=== PATIENT | male | born 1940 | race Caucasian/White ===

== ENCOUNTER 2016-12-24 15:51 | Emergency (ER) | payer MEDICARE, OTHER ==
[2016-12-24 16:00] VITALS: BP 135/67
--- NOTE | 2016-12-24 16:29 | UC ---
Hip/Pelvis Pain - HPI Summary HPI Summary: 76 YEAR OLD MALE WITH A HISTORY OF POLIO PRESENTS WITH LEFT HIP PAIN WITH RECENT FALL. - History Of Current Complaint Chief Complaint: UCLowerExtremity Stated Complaint: LEFT HIP PAIN Time Seen by Provider: 12/24/16 15:57 Hx Obtained From: Patient Onset/Duration: Sudden Onset Severity Initially: Moderate Severity Currently: Moderate Pain Scale Used: 0-10 Numeric - 5 Character Of Pain: Aching Aggravating Factor(s): Weight Bearing Alleviating Factor(s): Nothing - Allergies/Home Medications Allergies/Adverse Reactions: Allergies Allergy/AdvReac Type Severity Reaction Status Date / Time Simvastatin [From Zocor] Allergy See Comment Verified 12/24/16 16:00 Home Medications: Home Medications Clopidogrel TAB* [Plavix TAB*] 75 mg PO DAILY 12/24/16 [History Confirmed ] PMH/Surg Hx/FS Hx/Imm Hx Previously Healthy: Yes - Surgical History Surgical History: Yes Surgery Procedure, Year, and Place: PELVIC SX. APPY. STENT PLACEMENT--NECK s/ p CVA. Voicebox procedure s/p Polio - Social History Alcohol Use: None Substance Use Type: None Smoking Status (MU): Never Smoked Tobacco Review of Systems Constitutional: Negative Skin: Negative Eyes: Negative ENT: Negative Respiratory: Negative Cardiovascular: Negative Gastrointestinal: Negative Genitourinary: Negative Motor: Negative Neurovascular: Negative Musculoskeletal: Decreased ROM, Myalgia, Other: - LEFT HIP/THIGH PAIN Neurological: Negative Psychological: Negative All Other Systems Reviewed And Are Negative: Yes Physical Exam Triage Information Reviewed: Yes Vital Signs: Initial Vital Signs Temp 35.9 C 12/24/16 15:57 Pulse 77 12/24/16 15:57 Resp 14 12/24/16 15:57 BP 135/67 12/24/16 15:57 Pulse Ox 98 12/24/16 15:57 Eye Exam: Normal ENT Exam: Normal Dental Exam: Normal Neck exam: Normal Neck: Positive: 1 Respiratory Exam: Normal Cardiovascular Exam: Normal Abdominal Exam: Normal Musculoskeletal: Positive: Other: - LEFT HIP/THIGH PAIN Neurological Exam: Normal Psychological Exam: Normal Skin Exam: Normal Hip Injury Course/Dx - Differential Dx/Diagnosis Provider Diagnoses: LEFT HIP PAIN/THIGH PAIN Discharge - Discharge Plan Condition: Stable Disposition: HOME Prescriptions: Methylprednisolone [Medrol Dosepak 4 MG*] 4 mg PO .SEE ABIGAIL INSTRUCTION #21 tab Patient Education Materials: Hip Pain (ED) Referrals: Nelson Atwood MD [Medical Doctor] - Yi Jonas MD [Primary Care Provider] -
--- NOTE | 2016-12-24 16:48 | RAD ---
INDICATION: Left hip injury. COMPARISON: There are no prior studies available for comparison. TECHNIQUE: An AP view of the pelvis and frontal and lateral views of the left hip were obtained. FINDINGS: There is deformity of the right hemipelvis and fusion of the right femur and acetabulum. Note is made of 2 surgical screws present in this region. The left hip appears intact. No fracture is seen. There is moderate osteoarthritic change in the left hip. IMPRESSION: 1. NO FRACTURE IS SEEN, IF THE PATIENT'S SYMPTOMS PERSIST RECOMMEND FOLLOW-UP IMAGING. 2. OSSEOUS FUSION OF THE RIGHT HIP JOINT. 3. MODERATE OSTEOARTHRITIC CHANGE IN THE LEFT HIP.
== END 2016-12-24 17:09 | disposition home or self-care (01) ==
LOC: UCCORT 15:51
DX: M25.552 Pain in left hip (principal); M79.652 Pain in left thigh
CPT/HCPCS: 99212; G0463

== ENCOUNTER 2018-01-18 12:22 | Emergency (ER) | payer MEDICARE, OTHER ==
[2018-01-18 13:22] VITALS: BP 111/74
--- NOTE | 2018-01-18 13:35 | RAD ---
INDICATION: Right knee injury. TECHNIQUE: 4 views of the right knee were obtained. FINDINGS: The bones appear osteopenic and deformed. No joint effusion is seen. No fracture is seen. The patella is low in position suggesting the possibility of a tear of the quadriceps tendon. Recommend clinical correlation. There is moderate osteoarthritic change in the medial and patellofemoral compartments. IMPRESSION: THE PATELLA IS LOW IN POSITION SUGGESTING THE POSSIBILITY OF A QUADRICEPS TENDON TEAR. RECOMMEND CLINICAL CORRELATION.
--- NOTE | 2018-01-18 13:38 | UC ---
Knee Pain HPI - HPI Summary HPI Summary: right knee pain x 1 day s/p fall this morning on his right knee cap + pain and swelling of right knee, cannot put pressure on his right knee hx of polio effected his right lower ext - History of Current Complaint Chief Complaint: UCLowerExtremity Stated Complaint: RT KNEE INJ Time Seen by Provider: 01/18/18 13:02 Hx Obtained From: Patient Onset/Duration: Sudden Onset, Lasting Days - 1, Still Present Severity Initially: Moderate Severity Currently: Moderate Pain Intensity: 0 Character: Aching Aggravating Factor(s): Movement, Weight Bearing Alleviating Factor(s): Rest Associated Signs And Symptoms: Positive: Swelling Able to Bear Weight: No - Allergies/Home Medications Allergies/Adverse Reactions: Allergies Allergy/AdvReac Type Severity Reaction Status Date / Time simvastatin Allergy Muscle Ache Verified 01/18/18 13:19 PMH/Surg Hx/FS Hx/Imm Hx - Additional Past Medical History Additional PMH: 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 APPY. STENT PLACEMENT--NECK s/ p CVA. Voicebox procedure s/p Polio - Family History Known Family History: Negative: Diabetes - Social History Alcohol Use: None Substance Use Type: None Smoking Status (MU): Never Smoked Tobacco Review of Systems Constitutional: Negative Skin: Negative Eyes: Negative ENT: Negative Respiratory: Negative Is Patient Immunocompromised?: No All Other Systems Reviewed And Are Negative: Yes Physical Exam Triage Information Reviewed: Yes Appearance: Well-Appearing, No Pain Distress, Thin, Other: - polio deformaties right lower ext Vital Signs: Initial Vital Signs Temp 98.1 F 01/18/18 13:20 Pulse 63 01/18/18 13:20 Resp 18 01/18/18 13:20 BP 111/74 01/18/18 13:20 Pulse Ox 99 01/18/18 13:20 Vital Signs Reviewed: Yes Eye Exam: Normal Eyes: Positive: Conjunctiva Clear ENT: Positive: Normal ENT inspection, Hearing grossly normal, Pharynx normal Neck: Positive: Supple, Nontender, No Lymphadenopathy Respiratory: Positive: Chest non-tender, Lungs clear, Normal breath sounds Cardiovascular: Positive: RRR, No Murmur, Pulses Normal Neurological: Positive: Other: - right knee: + swelling, + large effusiong , diffuse tenderenss, limited ROM on flexion Diagnostics - Laboratory Diagnostic Studies Completed/Ordered: right knee xray : IMPRESSION: THE PATELLA IS LOW IN POSITION SUGGESTING THE POSSIBILITY OF A QUADRICEPS. TENDON TEAR. RECOMMEND CLINICAL CORRELATION. Knee Pain Course/Dx - Differential Dx/Diagnosis Provider Diagnoses: contsion right knee. right knee effusion Discharge - Sign-Out/Discharge Documenting (check all that apply): Patient Departure All imaging exams completed and their final reports reviewed: Yes - Discharge Plan Condition: Stable Disposition: HOME Patient Education Materials: Swollen Knee Joint (ED) Referrals: Yi Jonas MD [Primary Care Provider] - Nelson Atwood MD [Medical Doctor] - As Soon As Possible - Billing Disposition and Condition Condition: STABLE Disposition: Home
== END 2018-01-18 13:53 | disposition home or self-care (01) ==
LOC: UCCORT 12:22
DX: S80.01XA Contusion of right knee, initial encounter (principal); W19.XXXA Unspecified fall, initial encounter; Y93.9 Activity, unspecified; M25.461 Effusion, right knee; Y92.9 Unspecified place or not applicable; Z86.12 Personal history of poliomyelitis; Z88.8 Allergy status to other drugs, medicaments and biological substances
CPT/HCPCS: 99211; G0463